=== PATIENT | female | born 1985 | race Caucasian/White ===

== ENCOUNTER 2017-05-05 12:52 | Emergency (ER) | payer MEDICAID ==
[2017-05-05 12:58] VITALS: BP 136/92
== END 2017-05-05 15:29 | disposition left against medical advice (07) ==
LOC: ED 12:52
DX: Z53.21 Procedure and treatment not carried out due to patient leaving prior to being seen by health care provider (principal)

== ENCOUNTER 2017-12-04 18:57 | Emergency (ER) | payer SELFPAY ==
[2017-12-04 20:33] VITALS: BP 135/85
== END 2017-12-04 20:33 | disposition home or self-care (01) ==
LOC: ED 18:57
DX: F41.9 Anxiety disorder, unspecified (principal); F42.9 Obsessive-compulsive disorder, unspecified; R19.7 Diarrhea, unspecified; Z86.59 Personal history of other mental and behavioral disorders

== ENCOUNTER 2018-05-27 12:33 | Emergency (ER) | payer MEDICAID ==
[~2018-05-27] VITALS: Ht 160 cm; Wt 89.1 kg
[2018-05-27 12:43] VITALS: BP 142/74; Ht 160 cm; Wt 89.1 kg
== END 2018-05-27 14:33 | disposition home or self-care (01) ==
LOC: ED 12:33
DX: F41.9 Anxiety disorder, unspecified (principal); Z86.59 Personal history of other mental and behavioral disorders

== ENCOUNTER 2019-12-28 09:49 | Emergency (ER) | payer SELFPAY ==
[~2019-12-28] VITALS: Ht 157.5 cm; Wt 86.6 kg
[2019-12-28 09:55] VITALS: BP 161/99; Ht 157.5 cm; Wt 86.6 kg
== END 2019-12-28 12:04 | disposition left against medical advice (07) ==
LOC: ED 09:49
DX: Z53.21 Procedure and treatment not carried out due to patient leaving prior to being seen by health care provider (principal)